=== PATIENT | female | born 1980 | race Caucasian/White ===

== ENCOUNTER 2020-03-14 14:37 | Emergency (ER) | payer SELFPAY ==
[~2020-03-14] VITALS: Ht 152.4 cm; Wt 92.2 kg
[~2020-03-14 14:37] MED LIST: ALPR0.25 PO; CITA10TA8 PO; IBUP800T19 PO; LAMO25TA5 PO; ONDA4TAB10 SL; OXYC1TAB15 PO
[2020-03-14 14:58] VITALS: BP 136/66
[2020-03-14] MEDS: traMADol 50 MG TABLET PO ONE (15:21)
--- NOTE | 2020-03-14 16:24 | RAD ---
2 views right tibia-fibula HISTORY: Pain status post injury AP lateral views There has been prior repair of the distal right fibula with overlying plate and screws. There is an old ununited fracture from the tip of the medial malleolus. The remaining visualized osseous structures appear grossly intact. IMPRESSION: No acute findings. End impression 3 views right foot: AP lateral oblique views The visualized osseous structures appear normal. IMPRESSION: No acute findings. Electronically signed by: Rodriguez Jeong III, MD (03/14/2020 4:21 PM) [id number]
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
== END 2020-03-14 16:57 | disposition home or self-care (01) ==
LOC: ER 14:37
DX: S93.401A Sprain of unspecified ligament of right ankle, initial encounter (principal); X50.9XXA Other and unspecified overexertion or strenuous movements or postures, initial encounter; Y93.89 Activity, other specified; Y92.89 Other specified places as the place of occurrence of the external cause; Y99.8 Other external cause status
CPT/HCPCS: 73590; 73630; 99284

== ENCOUNTER 2020-06-12 21:56 | Emergency (ER) | payer OTHER ==
[~2020-06-12] VITALS: Ht 152.4 cm; Wt 92.2 kg
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
[2020-06-12] MEDS ORDERED: ORPHENADRINE CITRATE 60 MG/2 ML VIAL. IM ONE (22:30)
[2020-06-12] MEDS ORDERED: DIPH,PERTUSS(ACELL),TET VAC/PF 0.5 ML SYRINGE. VAX IM ONE (22:30)
[2020-06-12] MEDS ORDERED: MUPIROCIN 2% TOPICAL OINTMENT 22GM TUBE. TP SCH (22:30)
[2020-06-12] MEDS ORDERED: KETOROLAC 60 MG/2 ML VIAL. IM ONE (23:00)
--- NOTE | 2020-06-12 23:00 | RAD ---
EXAM: AP, oblique, lateral and tangential patellar views the right knee DATE: 06/12/2020 10:24 PM INDICATION: Fall, right knee pain COMPARISON: No Prior FINDINGS: No evidence of acute fracture or dislocation. Joint spaces are preserved without significant degenerative/proliferative change. Neutral patellar tr acking. No joint effusion. IMPRESSION: No evidence of acute fracture or dislocation. Electronically signed by: Alfredo Rivera MD (06/12/2020 10:58 PM) [facility]
--- NOTE | 2020-06-12 23:04 | RAD ---
CT LUMBAR SPINE WO History:Reason: fall on ice / Spl. Instructions: / History: Pain Technique: Noncontrast CT was performed of the lumbar spine. Multiplanar reconstructions were perform ed. Exposure: One or more of the following individualized dose reduction techniques were utilized for thi s examination: 1. Automated exposure control 2. Adjustment of the mA and/or kV according to patient size 3. Use of iterative reconstruction technique. Comparison: None Findings: Normal vertebral body height and alignment. No fracture. T12-L1: No canal or neuroforaminal narrowing. L1-L2: No canal or neuroforaminal narrowing. L2-L3: Small disc bulge. No canal or neuroforaminal narrowing. L3-L4: Small disc bulge. Mild facet arthropathy. Superimposed right foraminal disc protrusion. No ca nal narrowing. Minimal right neuroforaminal narrowing. No left neuroforaminal narrowing. L4-L5: Disc bulge. Mild facet arthropathy. No canal or neuroforaminal narrowing. L5-S1: Small disc bulge. No canal or neuroforaminal narrowing. Mild facet arthropathy. Impression: 1. No acute fracture or subluxation of the lumbar spine. Electronically signed by: Haseeb Curry DO (06/12/2020 11:01 PM) [facility]
--- NOTE | 2020-06-12 23:05 | RAD ---
CT ABDOMEN+PELVIS WO History: Reason: fall on ice / Spl. Instructions: / History: . Pain Technique: Noncontrast examination of the abdomen and pelvis. Coronal and sagittal reconstructions we re performed. Exposure: One or more of the following individualized dose reduction techniques were utilized for thi s examination: 1. Automated exposure control 2. Adjustment of the mA and/or kV according to patient size 3. Use of iterative reconstruction technique. Comparison: None Findings: Lower chest: No consolidation or pleural effusion. Abdomen and pelvis: The liver, spleen, adrenal glands, pancreas and gallbladder are unremarkable. No biliary ductal dilatation. Normal noncontrast appearance of the kidneys. No hydronephrosis. No renal calculi. Normal appendix. No evidence of bowel obstruction. No pathologic lymphadenopathy. No ascites. Bones: No pathologic osseous lesions. Impression: 1. No acute abdominal or pelvic pathology. Electronically signed by: Haseeb Curry DO (06/12/2020 11:02 PM) [facility]
[2020-06-13 00:16] VITALS: BP 125/55
[2020-06-13] MEDS ORDERED: HYDR-1179 PO (00:27)
[2020-06-13] MEDS ORDERED: CYCL-331 PO (00:27)
[2020-06-13 00:39] LABS: BARBITURATES NEG (NEG); BENZODIAZEPINES POS (NEG); CANNABINOIDS NEG (NEG); COCAINE NEG (NEG); METHADONE NEG (NEG); OPIATES NEG (NEG); PHENCYCLIDINE NEG (NEG)
[2020-06-13 00:40] LABS: AMPHETAMINE/METHAMPHETAMINE NEG (NEG)
[2020-06-13 00:43] LABS: BACTERIA,URINE 0 /HPF (0-FEW); BILIRUBIN,URINE NEG (NEG); CLARITY,URINE CLEAR; COLOR,URINE YELLOW; GLUCOSE,URINE NEG (NEG); NITRITE,URINE NEG (NEG); RBC,URINE 0 /HPF (0-2); SQUAMOUS EPITHELIAL CELL,UR OCC /LPF
[2020-06-13] MEDS ORDERED: OXYC1TAB15 PO (00:59)
[2020-06-13] MEDS ORDERED: oxyCODONE/APAP 5/325 1 TAB TABLET ONE (01:18)
[2020-06-13] MEDS ORDERED: oxyCODONE/APAP 5/325 1 TAB TABLET PO ONE (02:00)
== END 2020-06-13 01:20 | disposition home or self-care (01) ==
LOC: ER 21:56
DX: S80.01XA Contusion of right knee, initial encounter (principal); M25.551 Pain in right hip; M54.5 Low back pain; M62.830 Muscle spasm of back; R10.9 Unspecified abdominal pain; Z98.890 Other specified postprocedural states; Z90.710 Acquired absence of both cervix and uterus; Z88.5 Allergy status to narcotic agent; W00.0XXA Fall on same level due to ice and snow, initial encounter; Y93.89 Activity, other specified; Y92.89 Other specified places as the place of occurrence of the external cause; Y99.8 Other external cause status
CPT/HCPCS: 36415; 72131; 73564; 74176; 80307; 81001; 90471; 90715; 96372; 99285; J1885; J2360